=== PATIENT | female | born 1975 | race Asian ===

== ENCOUNTER → 2017-05-12 | Outpatient (CLI) | payer BC | LOC: CIMAGING 15:31 | PROVIDERS: ATTEND Family Medicine | DX: R07.89 Other chest pain (principal) | CPT/HCPCS: 71046-PO ==

== ENCOUNTER 2017-05-22 09:52 | Emergency (ER) | payer BC ==
[2017-05-22 10:02] VITALS: TEMP 98.6
[2017-05-22] MEDS ORDERED: predniSONE 20 MG TAB PO ONE (10:17)
--- NOTE | 2017-05-22 10:22 | EDPHY ---
H & P Stated Complaint: COUGH, SHORT OF BREATH Time Seen by Provider: 05/22/17 10:08 HPI/ROS: CHIEF COMPLAINT: Cough HISTORY OF PRESENT ILLNESS: The patient is a 41-year-old female with a history of asthma who comes to the emergency department complaining of return of her cough. She states that last week she presented to her primary who diagnosed her with an asthma exacerbation. She was started on a steroid pack and continued to use albuterol. She was also given a Z-Jonathan because she had reported chills. They performed a chest x-ray which was clear. She states that she felt much better over the weekend but then her symptoms have returned the last 3-4 days. She is not however having chills or fevers now. She states that the cough is persistent and that she is using her albuterol inhaler every hour. She states that it is making her tremulous. She was tachycardic on arrival but saturating 98% on room air. She denies recent travel. No leg pain or swelling. No hemoptysis. No pleuritic chest pain. She does complain of chest tightness which she attributes to her asthma. She is not a smoker. She has never had thrombotic disease. Her cough is nonproductive REVIEW OF SYSTEMS: Constitutional: denies: chills, fever, recent illness, recent injury EENTM: denies: blurred vision, double vision, nose congestion Respiratory: See HPI Cardiac: denies: chest pain, irregular heart rate, lightheadedness, palpitations Gastrointestinal/Abdominal: denies: abdominal pain, diarrhea, nausea, vomiting, blood streaked stools Genitourinary: denies: dysuria, frequency, hematuria, pain Musculoskeletal: denies: joint pain, muscle pain Skin: denies: lesions, rash, jaundice, bruising Neurological: denies: headache, numbness, paresthesia, tingling, dizziness, weakness Hematologic/Lymphatic: denies: blood clots, easy bleeding, easy bruising Immunologic/allergic: denies: HIV/AIDS, transplant EXAM: GENERAL: Well-appearing, well-nourished and in no acute distress. HEAD: Atraumatic, normocephalic. EYES: Pupils equal round and reactive to light, extraocular movements intact, sclera anicteric, conjunctiva are normal. ENT: TMs normal, nares patent, oropharynx clear without exudates. Moist mucous membranes. NECK: Normal range of motion, supple without lymphadenopathy or JVD. LUNGS: Occasional cough, Breath sounds clear to auscultation bilaterally and equal. No wheezes rales or rhonchi. HEART: Regular rate and rhythm without murmurs, rubs or gallops. ABDOMEN: Soft, nontender, normoactive bowel sounds. No guarding, no rebound. No masses appreciated. BACK: No CVA tenderness, no spinal tenderness, step-offs or deformities EXTREMITIES: Normal range of motion, no pitting or edema. No clubbing or cyanosis. NEUROLOGICAL: Cranial nerves II through XII grossly intact. Normal speech, normal gait. 5/5 strength, normal movement in all extremities, normal sensation PSYCH: Normal mood, normal affect. SKIN: Warm, dry, normal turgor, no visible rashes or lesions. Source: Patient Exam Limitations: No limitations - Personal History LMP (Females 10-55): IUD In Place Current Tetanus/Diphtheria Vaccine: Yes Tetanus Vaccine Date: WITHIN 10YRS - Medical/Surgical History Hx Asthma: Yes Hx Diabetes: No Hx Cardiac Disease: No Hx Renal Disease: No Hx Cirrhosis: No Other PMH: Csection. Asthma. Hypothyroid - Family History Significant Family History: No pertinent family hx - Social History Smoking Status: Never smoked Alcohol Use: None Constitutional: Initial Vital Signs Temperature (C) 37 C 05/22/17 09:55 Heart Rate 115 H 05/22/17 09:55 Respiratory Rate 20 05/22/17 09:55 Blood Pressure 121/74 H 05/22/17 09:55 O2 Sat (%) 95 05/22/17 09:55 O2 Delivery Mode Room Air Allergies/Adverse Reactions: levofloxacin [From Levaquin] Allergy (Intermediate, Verified 05/22/17 09:58) Rash Home Medications: Medication Instructions Recorded Montelukast Sodium 10/11/15 Advair 500/50 (*) 05/22/17 Albuterol 05/22/17 Levothyroxine 05/22/17 guaiFENesin/DEXTROMETHORPHAN 1 each PO BID #14 tab.er.12h 05/22/17 [Mucinex Dm ER 1,200-60 mg Tab] predniSONE 60 mg PO DAILY #15 tab 05/22/17 Medical Decision Making - Diagnostics EKG Interpretation: An EKG obtained and was read and documented in trace view. Please see trace view for full reading and report. Sinus rhythm, no acute ischemic changes Imaging Results: Imaging Impressions Chest X-Ray 05/22/17 10:17 Impression: Possible mild airways disease with no superimposed pneumonia identified. Imaging: Discussed imaging studies w/ house calls nurse Radiologist ED Course/Re-evaluation: Patient's initial heart rate at triage was 115 after walking in from the car and using albuterol recently. Here in the room it is 96. 11:20 a.m. the patient's x-rays reassuring. Her symptoms have improved. Her heart rate is normal. She is requesting another burst of steroids and a cough suppressant prescription. She declines further workup or observation. We discussed follow-up as well as indications for returning. Differential Diagnosis: Partial list of the Differential diagnosis considered include but were not limited to; cough, asthma exacerbation, bronchitis, pneumonia and although unlikely based on the history and physical exam, I also considered PE, acute coronary disease, CHF. I discussed these differential diagnoses and the plan with the patient as well as the usual and expected course. The patient understands that the diagnosis is provisional and that in medicine we are not always correct and that further workup is often warranted. Usual and customary warnings were given. All of the patient's questions were answered. The patient was instructed to return to the emergency department should the symptoms at all worsen or return, otherwise to followup with the physician as we discussed. - Data Points Medications Given: Discontinued Medications Prednisone (Prednisone) 60 mg PO EDNOW ONE Stop: 05/22/17 10:18 Last Admin: 05/22/17 10:25 Dose: 60 mg Departure - Departure Disposition: Home, Routine, Self-Care Clinical Impression: Exacerbation of asthma Qualifiers: Asthma severity: moderate Asthma persistence: unspecified Qualified Code(s): J45.901 - Unspecified asthma with (acute) exacerbation Condition: Fair Instructions: Bronchospasm (ED) Referrals: Susi Rose MD [Primary Care Provider] - As per Instructions Stand Alone Forms: Work Excuse Prescriptions: guaiFENesin/DEXTROMETHORPHAN [Mucinex Dm ER 1,200-60 mg Tab] 1 each PO BID #14 tab.er.12h predniSONE 60 mg PO DAILY #15 tab
--- NOTE | 2017-05-22 10:27 | CPEKG ---
Heart Rate: 76 RR Interval: 789 P-R Interval: 164 QRSD Interval: 80 QT Interval: 404 QTC Interval: 455 P [place]: 43 QRS [place]: 70 T Wave [place]: 30 EKG Severity - NORMAL ECG - EKG Impression: SINUS RHYTHM Electronically Signed By: See Price 22-May-2017 10:33:01
[2017-05-22 11:51] VITALS: BP 112/68; PULSE 71; RESP 18; O2SAT 96
== END 2017-05-22 11:32 | disposition home or self-care (01) ==
LOC: CED 09:52
DX: J45.901 Unspecified asthma with (acute) exacerbation (principal)
CPT/HCPCS: 71046-PO; J7512

== ENCOUNTER 2017-09-15 10:53 | Emergency (ER) | payer BC ==
[2017-09-15] MEDS ORDERED: IPRATROPIUM/ALBUTEROL 3 ML DEYVIAL IH ONE (11:07)
--- NOTE | 2017-09-15 11:11 | EDPHY ---
H & P Time Seen by Provider: 09/15/17 10:58 HPI/ROS: This patient complains of shortness of breath and if tight feeling in her chest 7/10 intensity a similar to prior asthma episodes associated with shortness of breath. She has been using her albuterol nebulizer 4 times a day as well as albuterol inhaler in addition and continues her Advair. Despite this she reports ongoing dyspnea. She reports that she feels she had asked the prop herself up at night in order to breathe more easily and describes a feeling of orthopnea when lying flat. She reports improvement in sinusitis symptoms since completing 7 day course of Augmentin after being diagnosed with sinusitis and primary care physician's office last week. However, her asthma symptoms of increased over the past week. ROS: Constitutional: No high fevers or chills. HEENT: Sinus pain improved down to minimal currently. Minimal scratchy throat that she attributes to coughing. Neuro: No headache Pulmonary: No pleuritic pain, hemoptysis or respiratory distress Cardiovascular: No heart palpitations, lightheadedness or leg swelling GI: No nausea vomiting or abdominal pain Integumentary: No skin rash or pallor Endocrine: No complaints Complete review of symptoms is otherwise negative. Source: Patient Exam Limitations: No limitations - Personal History Tetanus Vaccine Date: WITHIN 10YRS - Medical/Surgical History PMH: Hypothyroidism Asthma Sinusitis Hx Asthma: Yes Hx Diabetes: No Hx Cardiac Disease: No Hx Renal Disease: No Hx Cirrhosis: No Other PMH: Csection. Asthma. 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 - Physical Exam Exam: General Appearance: Pleasant female Alert, no distress. Eyes: Pupils equal and round no pallor or injection. ENT, Mouth: Mucous membranes moist. Respiratory: Minimal expiratory wheeze with occasional dry cough. Cardiovascular: Regular rate and rhythm. No murmur gallop rub. No JVD. No peripheral edema. No calf swelling or tenderness. Gastrointestinal: Abdomen is soft and nontender, no masses, bowel sounds normal. Neurological: GCS 15 with no focal deficits. Skin: Warm and dry, no rashes. Musculoskeletal: Neck is supple nontender. Extremities are symmetrical, full range of motion. Psychiatric: Mood and affect are normal DIFFERENTIAL DIAGNOSIS: After history and physical exam differential diagnosis was considered for asthma exacerbation, myocardial ischemic disease, mild CHF, pneumonia, bronchitis Constitutional: Initial Vital Signs Temperature (C) 36.4 C 09/15/17 10:57 Heart Rate 85 09/15/17 10:57 Respiratory Rate 16 09/15/17 10:57 Blood Pressure 103/63 09/15/17 10:57 O2 Sat (%) 96 09/15/17 10:57 O2 Delivery Mode Room Air Allergies/Adverse Reactions: levofloxacin [From Levaquin] Allergy (Intermediate, Verified 09/15/17 11:13) Rash Home Medications: Medication Instructions Recorded Montelukast Sodium 10/11/15 Advair 500/50 (*) 05/22/17 Albuterol 05/22/17 Levothyroxine 05/22/17 Albuterol Hfa Anes Only [Proair 2 puffs IH Q4 PRN #1 mdi 09/15/17 Hfa Icu (*)] Albuterol [Proventil Neb] 3 ml IH Q4 PRN #25 deyvial 09/15/17 predniSONE 60 mg PO DAILY #12 tab 09/15/17 Medical Decision Making - Diagnostics EKG Interpretation: 12 lead EKG indication chest pain performed at 11:18 a.m. Sinus rhythm 74 Intervals: Normal throughout [place]: Normal throughout ST segments: Normal throughout Overall assessment: Normal EKG. Please refer to trace master for complete read ED Course/Re-evaluation: Patient's peak flows minimally diminished. She is treated with a DuoNeb with increased aeration decreased wheeze and subjective improvement. Treated also with prednisone 60 mg p.o. Discussion: Patient presents with findings consistent with mild asthma exacerbation improved with nebulizer here. No clinical findings that would suggest lower respiratory infection. Her chest tightness that she describes I think is attributable to her asthma exacerbations reports this does feel similar to prior asthma exacerbations. EKG performed to rule out any significant cardiac disease with no abnormalities noted. Patient's chest tightness improved with DuoNeb. Not think she has any active acute cardiopulmonary pathology beyond her asthma exacerbation is associated with her recent URI. Will plan to send patient home with prednisone burst and continue beta agonist. Counseled regarding this. She understands need to return should she develop any significant worsening of her symptoms despite the treatment plan. - Data Points Medications Given: Discontinued Medications Albuterol/Ipratropium (Duoneb) 3 ml IH EDNOW ONE Stop: 09/15/17 11:08 Last Admin: 09/15/17 11:25 Dose: 3 ml Prednisone (Prednisone) 60 mg PO EDNOW ONE Stop: 09/15/17 11:33 Last Admin: 09/15/17 11:47 Dose: 60 mg Departure - Departure Disposition: Home, Routine, Self-Care Clinical Impression: Asthma exacerbation Qualifiers: Asthma severity: moderate Asthma persistence: unspecified Qualified Code(s): J45.901 - Unspecified asthma with (acute) exacerbation Condition: Good Instructions: Asthma (ED) Additional Instructions: Diagnosis: Asthma exacerbation Your EKG appears normal today. Plan: Humidifier Continue your albuterol inhaler and nebulizer Add prednisone Follow up with primary care physician for any ongoing symptoms Return for any significant worsening despite the treatment plan. Referrals: Susi Rose MD [Primary Care Provider] - As per Instructions Prescriptions: Albuterol [Proventil Neb] 3 ml IH Q4 PRN #25 deyvial PRN Reason: Wheezing Albuterol Hfa Anes Only [Proair Hfa Icu (*)] 2 puffs IH Q4 PRN #1 mdi PRN Reason: Wheezing predniSONE 60 mg PO DAILY #12 tab
--- NOTE | 2017-09-15 11:20 | CPEKG ---
Heart Rate: 74 RR Interval: 811 P-R Interval: 152 QRSD Interval: 86 QT Interval: 428 QTC Interval: 475 P [place]: 45 QRS [place]: 37 T Wave [place]: 15 EKG Severity - NORMAL ECG - EKG Impression: SINUS RHYTHM Electronically Signed By: Kenny Jett 15-Sep-2017 14:04:06
[2017-09-15] MEDS ORDERED: predniSONE 20 MG TAB PO ONE (11:32)
[2017-09-15 11:57] VITALS: BP 95/65
== END 2017-09-15 11:59 | disposition home or self-care (01) ==
LOC: CED 10:53
DX: J45.901 Unspecified asthma with (acute) exacerbation (principal)
CPT/HCPCS: J7512